=== PATIENT | male | born 1990 | race Two or more races ===

== ENCOUNTER 2021-04-20 09:28 | Emergency (ER) | payer OTHER ==
[~2021-04-20] VITALS: Ht 177.8 cm; Wt 68.0 kg
[2021-04-20 09:41] VITALS: BP 136/78
--- NOTE | 2021-04-20 09:47 | NUR ---
SEEN AND EXAMINED BY .
[2021-04-20] MEDS ORDERED: BUPRENORPHINE HCL 8 MG TAB.SUBL SL ONE ×4 (09:51→11:00)
[2021-04-20] MEDS ORDERED: BUPR8TAB4 SL (12:18)
--- NOTE | 2021-04-20 12:41 | NUR ---
Patient discharged in custody in stable condition. Written and verbal after care instructions given. Patient verbalizes understanding of instruction.
== END 2021-04-20 13:21 ==
LOC: ER 09:32
DX: F11.23 Opioid dependence with withdrawal (principal); F17.200 Nicotine dependence, unspecified, uncomplicated; Z02.89 Encounter for other administrative examinations